=== PATIENT | female | born 1990 | race Caucasian/White ===

== ENCOUNTER 2020-08-03 | Emergency (ER) | payer OTHER ==
[~2020-08-03] VITALS: Ht 165.1 cm; Wt 75.7 kg
[2020-08-03 00:16] VITALS: BP 158/108
--- NOTE | 2020-08-03 00:20 | NUR ---
PT AMBULATED TO BED 04 WITH STEADY GAIT.
--- NOTE | 2020-08-03 00:24 | NUR ---
Dr. Kelly examining patient.
[2020-08-03 00:38] VITALS: BP 158/108
--- NOTE | 2020-08-03 00:38 | NUR ---
Patient discharged with v/s stable. Written and verbal after care instructions given and explained. Patient verbalized understanding. Ambulatory with steady gait. All questions addressed prior to discharge. Advised to follow up with PMD.
== END 2020-08-03 00:38 | disposition home or self-care (01) ==
LOC: MED
DX: R60.9 Edema, unspecified (principal); F17.200 Nicotine dependence, unspecified, uncomplicated
CPT/HCPCS: 99281

== ENCOUNTER 2020-12-16 14:40 | Emergency (ER) | payer MEDICAID, OTHER ==
[~2020-12-16] VITALS: Ht 162.6 cm; Wt 75.7 kg
[2020-12-16 14:45] VITALS: BP 161/98
[2020-12-16] MEDS ORDERED: PENICILLIN G BENZATHINE L-A 1.2 MU/2 ML SYR IM ONE (15:10)
[2020-12-16] MEDS ORDERED: KETOROLAC 30 MG/ML VIAL IM ONE (15:10)
[2020-12-16] MEDS ORDERED: DEXAMETHASONE 10 MG/ML VIAL IM ONE (15:10)
[2020-12-16] MEDS ORDERED: IBUP-2213 PO (15:15)
[2020-12-16] MEDS ORDERED: KETOROLAC 30 MG/ML VIAL ONE (15:18)
[2020-12-16 15:46] VITALS: BP 161/98
== END 2020-12-16 15:46 | disposition home or self-care (01) ==
LOC: MED 14:40
DX: J02.8 Acute pharyngitis due to other specified organisms (principal); B96.89 Other specified bacterial agents as the cause of diseases classified elsewhere; I10 Essential (primary) hypertension; Z79.899 Other long term (current) drug therapy; Z98.890 Other specified postprocedural states
CPT/HCPCS: 87081; 96372; 99284; J0561; J1100; J1885